=== PATIENT | female | born 1990 | race Caucasian/White ===

== ENCOUNTER 2018-09-17 12:21 | Day surgery (SDC) | payer OTHER ==
[2018-09-17] MEDS ORDERED: PROPOFOL 20 ML (14:23)
[2018-09-17] MEDS ORDERED: ROCURONIUM 50 MG INJ (14:23)
[2018-09-17] MEDS ORDERED: ROPIVACAINE 0.2% 20 ML VIAL (14:23)
[2018-09-17] MEDS ORDERED: MIDAZOLAM 1 MG/ML 2 ML INJ (14:23)
[2018-09-17] MEDS ORDERED: FENTAnyl 50 MCG/ML VIAL (14:23)
[2018-09-17] MEDS ORDERED: CEFAZOLIN 1 GM INJ ×2 (14:23→14:27)
[2018-09-17] MEDS ORDERED: EPHEDrine SULFATE 50 MG/5 ML SYG IV (14:30)
[2018-09-17] MEDS ORDERED: HYDROmorphONE 1 MG/5 ML IV SYRINGE IV (14:30)
[2018-09-17] MEDS ORDERED: LABETALOL HCL 20MG INJ IV (14:30)
[2018-09-17] MEDS ORDERED: OXYCODONE/ACETAMINOPHEN (5/325) TAB PO ×2 (14:30)
[2018-09-17] MEDS ORDERED: METOCLOPRAMIDE 10 MG INJ IV (14:30)
[2018-09-17] MEDS ORDERED: FENTAnyl 50 MCG/ML VIAL IV ×2 (14:30)
[2018-09-17] MEDS ORDERED: DIPHENHYDRAMINE 50 MG INJ IV (14:30)
[2018-09-17] MEDS ORDERED: MEPERIDINE 25 MG INJ IV (14:30)
[2018-09-17] MEDS ORDERED: ROPIVACAINE 0.5 % 30 ML VIAL (14:40)
[2018-09-17] MEDS ORDERED: DEXAMETHASONE 4 MG/ML 1 ML INJ (15:34)
[2018-09-17] MEDS ORDERED: SUGAMMADEX SODIUM 200 MG/2 ML VIAL IV (15:34)
[2018-09-17] MEDS ORDERED: METOCLOPRAMIDE 10 MG INJ (15:34)
[2018-09-17] MEDS ORDERED: ONDANSETRON 4 MG INJ (15:34)
[2018-09-17] MEDS: HYDROmorphONE 1 MG/5 ML IV SYRINGE IV ×2 (16:09→16:16)
[2018-09-17] MEDS: ONDANSETRON 4 MG INJ IV (16:11)
[2018-09-17] MEDS: FENTAnyl 50 MCG/ML VIAL IV (16:22)
[2018-09-17] MEDS ORDERED: HYDROCODONE/APAP (10/325) TAB (17:09)
[2018-09-17] MEDS ORDERED: HYDROCODONE/APAP (5/325) TAB (17:13)
[2018-09-17] MEDS: HYDROCODONE/APAP (5/325) TAB PO (17:14)
== END 2018-09-17 18:10 | disposition home or self-care (01) ==
LOC: SDS 12:21
DX: K80.20 Calculus of gallbladder without cholecystitis without obstruction (principal)
CPT/HCPCS: 47562; 88304

== ENCOUNTER 2018-09-18 12:11 | Observation (INO) | payer OTHER ==
[2018-09-18 12:44] LABS: ADD MAN DIFF? NO
[2018-09-18] MEDS: ONDANSETRON 4 MG INJ IV ×3 (12:45→23:11)
[2018-09-18] MEDS: morphine 4 MG/ML VIAL IV (12:45)
[2018-09-18] MEDS: SOD CHLORIDE 0.9% 1,000 ML IV (12:45)
[2018-09-18 12:48] LABS: WHITE BLOOD COUNT 8.3 10^3/ul (4.8-10.8)
[2018-09-18 12:48] LABS: BASOPHILS % 0.4 % (0.0-2.0); EOSINOPHILS % 0.5 % (0.0-7.0); HEMATOCRIT 40.7 % (37.0-47.0); HEMOGLOBIN 13.9 g/dl (12.0-16.0); LYMPHOCYTES # 1.9 10^3/ul (0.8-2.9); LYMPHOCYTES % 23.2 % (15.0-51.0); MEAN CORPUSCULAR HGB CONC 34.2 g/dl (32.0-37.0); MEAN CORPUSCULAR VOLUME 96.7 fl (82.0-101.0); MEAN PLATELET VOLUME 10.2 fl (7.4-10.4); MONOCYTE # 0.7 10^3/ul (0.3-0.9); MONOCYTES % 8.1 % (0.0-11.0); NEUTROPHIL # 5.6 10^3/ul (1.6-7.5); NEUTROPHILS % 67.6 % (39.0-77.0); PLATELET COUNT 242 10^3/UL (140-415); RED BLOOD COUNT 4.21 10^6/ul (4.20-5.40); RED CELL DISTRIBUTION WIDTH 11.9 % (11.5-14.5)
[2018-09-18 13:10] LABS: ALANINE AMINOTRANSFERASE 50 IU/L (13-69); ALBUMIN 4.2 g/dl (3.3-4.9); ALBUMIN/GLOBULIN RATIO 1.13; ALKALINE PHOSPHATASE 49 IU/L (42-121); AMYLASE 57 U/L (11-123); ANION GAP 12 (5-13); ASPARTATE AMINO TRANSFERASE 48 IU/L (15-46); BILIRUBIN,INDIRECT 0.6 mg/dl (0-1.1); BILIRUBIN,TOTAL 0.6 mg/dl (0.2-1.3); BLOOD UREA NITROGEN 7 mg/dl (7-20); CALCIUM 9.5 mg/dl (8.4-10.2); CARBON DIOXIDE 27 mmol/L (21-31); CHLORIDE 104 mmol/L (97-110); CREATININE 0.52 mg/dl (0.44-1.00); Estimated GFR > 60 mL/min (>60); GLUCOSE 86 mg/dl (70-220); INR 1.01; LIPASE 54 U/L (23-300); POTASSIUM 3.5 mmol/L (3.5-5.1); PROTIME 13.4 Sec (11.9-14.9); SODIUM 143 mmol/L (135-144); TOTAL PROTEIN 7.9 g/dl (6.1-8.1)
[2018-09-18 13:11] LABS: PARTIAL THROMBOPLASTIN TIME 27.2 Sec (23.0-35.0)
[2018-09-18] MEDS: SOD CHLORIDE 0.9% 100 ML (14:25)
[2018-09-18] MEDS: IOHEXOL 300MG/ML 150 ML BTL (14:25)
[2018-09-18] MEDS: HYDROmorphONE 0.5 MG/0.5 ML SYG IV (14:53)
[2018-09-18] MEDS: HYDROmorphONE 1 MG/ML SYG IV ×2 (17:11→21:21)
[2018-09-18] MEDS: DEXTROSE 5%-0.45% NACL 1,000 ML IV (17:17)
[2018-09-18] MEDS: CEFTRIAXONE 1 GM/50 ML (PMX) 50 ML IVPB (18:27)
[2018-09-19 05:21] LABS: ADD MAN DIFF? NO
[2018-09-19 05:34] LABS: BASOPHILS % 0.7 % (0.0-2.0); EOSINOPHILS % 0.7 % (0.0-7.0); HEMATOCRIT 34.5 % (37.0-47.0); HEMOGLOBIN 11.3 g/dl (12.0-16.0); LYMPHOCYTES # 1.1 10^3/ul (0.8-2.9); LYMPHOCYTES % 25.4 % (15.0-51.0); MEAN CORPUSCULAR HEMOGLOBIN 32.6 pg (29.0-33.0); MEAN CORPUSCULAR HGB CONC 32.8 g/dl (32.0-37.0); MEAN CORPUSCULAR VOLUME 99.4 fl (82.0-101.0); MEAN PLATELET VOLUME 10.6 fl (7.4-10.4); MONOCYTE # 0.4 10^3/ul (0.3-0.9); MONOCYTES % 9.8 % (0.0-11.0); NEUTROPHIL # 2.6 10^3/ul (1.6-7.5); NEUTROPHILS % 63.2 % (39.0-77.0); PLATELET COUNT 181 10^3/UL (140-415); RED BLOOD COUNT 3.47 10^6/ul (4.20-5.40); RED CELL DISTRIBUTION WIDTH 12.1 % (11.5-14.5)
[2018-09-19 05:34] LABS: WHITE BLOOD COUNT 4.2 10^3/ul (4.8-10.8)
[2018-09-19] MEDS: ACETAMINOPHEN 500 MG TAB PO ×2 (05:47→22:21)
[2018-09-19] MEDS: DEXTROSE 5%-0.45% NACL 1,000 ML IV ×2 (05:53→10:46)
[2018-09-19 05:56] LABS: ANION GAP 7 (5-13); BLOOD UREA NITROGEN 6 mg/dl (7-20); CARBON DIOXIDE 31 mmol/L (21-31); CHLORIDE 103 mmol/L (97-110); CREATININE 0.44 mg/dl (0.44-1.00); Estimated GFR > 60 mL/min (>60); GLUCOSE 100 mg/dl (70-220); POTASSIUM 3.2 mmol/L (3.5-5.1); SODIUM 141 mmol/L (135-144)
[2018-09-19] MEDS: ENOXAPARIN 40 MG/0.4 ML SYG SC (08:49)
[2018-09-19] MEDS: HYDROmorphONE 1 MG/ML SYG IV (10:34)
[2018-09-19] MEDS: ONDANSETRON 4 MG INJ IV (10:34)
[2018-09-19] MEDS: D5W-0.45 NACL + KCL 20 MEQ 1,000 ML IV ×2 (11:52→23:19)
[2018-09-19] MEDS: METOCLOPRAMIDE 10 MG INJ IV (13:46)
[2018-09-19] MEDS: POTASSIUM CHLORIDE 100 ML IVPB (17:19)
[2018-09-19] MEDS: CEFTRIAXONE 1 GM/50 ML (PMX) 50 ML IVPB (18:26)
[2018-09-20 05:12] LABS: ADD MAN DIFF? NO
[2018-09-20 05:17] LABS: EOSINOPHILS # 0.1 10^3/ul (0.0-0.5); EOSINOPHILS % 1.4 % (0.0-7.0); HEMATOCRIT 33.1 % (37.0-47.0); HEMOGLOBIN 11.3 g/dl (12.0-16.0); LYMPHOCYTES # 0.7 10^3/ul (0.8-2.9); LYMPHOCYTES % 17.3 % (15.0-51.0); MEAN CORPUSCULAR HEMOGLOBIN 32.9 pg (29.0-33.0); MEAN CORPUSCULAR HGB CONC 34.1 g/dl (32.0-37.0); MEAN CORPUSCULAR VOLUME 96.5 fl (82.0-101.0); MEAN PLATELET VOLUME 10.7 fl (7.4-10.4); MONOCYTE # 0.4 10^3/ul (0.3-0.9); MONOCYTES % 9.4 % (0.0-11.0); NEUTROPHIL # 2.9 10^3/ul (1.6-7.5); NEUTROPHILS % 70.7 % (39.0-77.0); PLATELET COUNT 153 10^3/UL (140-415); RED BLOOD COUNT 3.43 10^6/ul (4.20-5.40); RED CELL DISTRIBUTION WIDTH 11.8 % (11.5-14.5)
[2018-09-20 05:17] LABS: WHITE BLOOD COUNT 4.2 10^3/ul (4.8-10.8)
[2018-09-20 05:31] LABS: ANION GAP 9 (5-13); BLOOD UREA NITROGEN 3 mg/dl (7-20); CALCIUM 8.3 mg/dl (8.4-10.2); CARBON DIOXIDE 27 mmol/L (21-31); CHLORIDE 104 mmol/L (97-110); CREATININE 0.36 mg/dl (0.44-1.00); Estimated GFR > 60 mL/min (>60); GLUCOSE 86 mg/dl (70-220); POTASSIUM 3.4 mmol/L (3.5-5.1); SODIUM 140 mmol/L (135-144)
[2018-09-20] MEDS: D5W-0.45 NACL + KCL 20 MEQ 1,000 ML IV (06:58)
[2018-09-20] MEDS: ENOXAPARIN 40 MG/0.4 ML SYG SC (09:00)
[2018-09-20] MEDS: ONDANSETRON 4 MG INJ IV (09:00)
[2018-09-20] MEDS: HYDROmorphONE 1 MG/ML SYG IV (09:01)
[2018-09-20] MEDS: POTASSIUM CHLORIDE (SR) 20 MEQ TAB PO (16:54)
[2018-09-20] MEDS: CEFTRIAXONE 1 GM/50 ML (PMX) 50 ML IVPB (18:00)
[2018-09-20] MEDS: LEVOFLOXACIN 750 MG TABLET PO (18:12)
== END 2018-09-20 19:20 | disposition home or self-care (01) ==
LOC: E/R 12:11 → MS1 15:37
PROVIDERS: Internal Medicine
DX: G89.18 Other acute postprocedural pain (principal)
CPT/HCPCS: 36415; 74177; 80048; 80053; 82150; 83605; 83690; 84703; 85025; 85610; 85730; 96374; 96375; 99285-25

== ENCOUNTER 2019-01-07 10:23 | Day surgery (SDC) | payer OTHER ==
[2019-01-07] MEDS: CEFAZOLIN 2 GM/50 ML (PMX) 50 ML IVPB (09:00)
[2019-01-07] MEDS: SOD CHLORIDE 0.9% 1,000 ML IV (09:00)
[2019-01-07] MEDS ORDERED: POLYMYXIN/BACITRACIN 1L IRRIG (13:44)
[2019-01-07] MEDS ORDERED: MIDAZOLAM 1 MG/ML 2 ML INJ (13:44)
[2019-01-07] MEDS ORDERED: FENTAnyl 50 MCG/ML VIAL ×2 (13:47→14:46)
[2019-01-07] MEDS ORDERED: ROCURONIUM 50 MG INJ (13:47)
[2019-01-07] MEDS ORDERED: PROPOFOL 20 ML (13:47)
[2019-01-07] MEDS ORDERED: LIDOCAINE 2% (SDV) 5 ML INJ (13:47)
[2019-01-07] MEDS ORDERED: ROPIVACAINE 0.5 % 30 ML VIAL (13:53)
[2019-01-07] MEDS ORDERED: DEXAMETHASONE 4 MG/ML 5 ML INJ (14:05)
[2019-01-07] MEDS ORDERED: FAMOTIDINE 20 MG INJ (14:05)
[2019-01-07] MEDS ORDERED: CEFAZOLIN 1 GM INJ (14:05)
[2019-01-07] MEDS ORDERED: ONDANSETRON 4 MG INJ (14:05)
[2019-01-07] MEDS ORDERED: NEOSTIGMINE 3 MG/3 ML SYRINGE (14:31)
[2019-01-07] MEDS ORDERED: GLYCOPYRROLATE 0.4 MG INJ (14:31)
[2019-01-07] MEDS: ONDANSETRON 4 MG INJ IV (15:02)
[2019-01-07] MEDS: HYDROmorphONE 1 MG/5 ML IV SYRINGE IV ×3 (15:02→15:21)
[2019-01-07] MEDS: MEPERIDINE 25 MG INJ IV (15:15)
[2019-01-07] MEDS: HYDROCODONE/APAP (5/325) TAB PO ×2 (15:29→22:20)
[2019-01-07] MEDS ORDERED: morphine 2 MG INJ IV (17:30)
[2019-01-08] MEDS: HYDROCODONE/APAP (5/325) TAB PO ×4 (05:10→22:29)
[2019-01-08] MEDS: SODIUM CHLORIDE 0.45% 500 ML BAG IV* (08:30)
[2019-01-08] MEDS ORDERED: HYDROmorphONE 0.5 MG/0.5 ML SYG IV (14:00)
[2019-01-08] MEDS: NS + KCL 20 MEQ 1,000 ML IV ×2 (14:00→18:06)
[2019-01-08] MEDS ORDERED: ACETAMINOPHEN 500 MG TAB PO (16:00)
[2019-01-08] MEDS ORDERED: ONDANSETRON 4 MG INJ IV (17:30)
[2019-01-09] MEDS: HYDROCODONE/APAP (5/325) TAB PO ×2 (03:37→15:11)
[2019-01-09] MEDS: NS + KCL 20 MEQ 1,000 ML IV ×2 (03:37→13:49)
[2019-01-09 06:21] LABS: ADD MAN DIFF? NO
[2019-01-09 06:28] LABS: BASOPHILS % 0.4 % (0.0-2.0); EOSINOPHILS # 0.1 10^3/ul (0.0-0.5); EOSINOPHILS % 1.4 % (0.0-7.0); HEMOGLOBIN 11.2 g/dl (12.0-16.0); LYMPHOCYTES % 13.3 % (15.0-51.0); MEAN CORPUSCULAR HEMOGLOBIN 33.1 pg (29.0-33.0); MEAN CORPUSCULAR HGB CONC 33.9 g/dl (32.0-37.0); MEAN CORPUSCULAR VOLUME 97.6 fl (82.0-101.0); MEAN PLATELET VOLUME 10.1 fl (7.4-10.4); MONOCYTE # 0.7 10^3/ul (0.3-0.9); MONOCYTES % 9.9 % (0.0-11.0); NEUTROPHIL # 5.5 10^3/ul (1.6-7.5); NEUTROPHILS % 74.6 % (39.0-77.0); PLATELET COUNT 177 10^3/UL (140-415); RED BLOOD COUNT 3.38 10^6/ul (4.20-5.40)
[2019-01-09 06:28] LABS: WHITE BLOOD COUNT 7.4 10^3/ul (4.8-10.8)
[2019-01-09 06:51] LABS: ALBUMIN 3.2 g/dl (3.3-4.9); ALKALINE PHOSPHATASE 44 IU/L (42-121); ASPARTATE AMINO TRANSFERASE 47 IU/L (15-46); BILIRUBIN,INDIRECT 0.1 mg/dl (0-1.1); BILIRUBIN,TOTAL 0.1 mg/dl (0.2-1.3); BLOOD UREA NITROGEN 9 mg/dl (7-20); CALCIUM 7.8 mg/dl (8.4-10.2); CARBON DIOXIDE 27 mmol/L (21-31); CHLORIDE 104 mmol/L (97-110); CREATININE 0.39 mg/dl (0.44-1.00); Estimated GFR > 60 mL/min (>60); GLUCOSE 94 mg/dl (70-220); TOTAL PROTEIN 6.1 g/dl (6.1-8.1)
[2019-01-09 07:05] LABS: ANION GAP 9 (5-13); POTASSIUM 3.7 mmol/L (3.5-5.1); SODIUM 140 mmol/L (135-144)
[2019-01-09 07:19] LABS: ALANINE AMINOTRANSFERASE 78 IU/L (13-69)
== END 2019-01-09 18:10 | disposition home or self-care (01) ==
LOC: SDS 10:23 → REC 18:10 → SDS 17:11 → REC 17:11 → SDS 17:11 → PP2 18:10 → SDS 01-09 18:10
DX: G89.18 Other acute postprocedural pain (principal); K43.0 Incisional hernia with obstruction, without gangrene; Q86.0 Fetal alcohol syndrome (dysmorphic)
CPT/HCPCS: 49655; 80053; 85025